=== PATIENT | male | born 1980 | race Caucasian/White ===

== ENCOUNTER 2016-11-10 13:34 | Emergency (ER) | payer SELFPAY ==
[~2016-11-10 13:34] MED LIST: CLEOCIN HCL300 MG PO; TYLENOL325 M1 PO
[2016-11-10] MEDS ORDERED: NO HOME MEDICATION XX (13:37)
[2016-11-10] MEDS ORDERED: DOXYCYCLINE MO100 M1 PO (14:38)
[2016-11-10] MEDS ORDERED: KEFLEX500 M4 PO (14:38)
== END 2016-11-10 14:47 ==
LOC: EDMED 13:34
PROC: 0H9FXZZ Drainage of Right Hand Skin, External Approach (ICD-10-PCS; principal; 2016-11-10)
DX: L03.011 Cellulitis of right finger (principal); F17.200 Nicotine dependence, unspecified, uncomplicated; Z88.2 Allergy status to sulfonamides